=== PATIENT | female | born 1940 | race Hispanic/Latino ===

== ENCOUNTER 2022-01-01 08:25 | Emergency (ER) | payer OTHER, MEDICARE ==
[~2022-01-01] VITALS: Ht 152.4 cm; Wt 95.3 kg
[2022-01-01] MEDS ORDERED: NA P133E4 RC (11:13)
[2022-01-01 12:02] VITALS: BP 147/66
== END 2022-01-01 12:04 | disposition home or self-care (01) ==
LOC: EDH 08:25
DX: K59.00 Constipation, unspecified (principal); R10.84 Generalized abdominal pain; R14.0 Abdominal distension (gaseous); I10 Essential (primary) hypertension; E11.9 Type 2 diabetes mellitus without complications; E78.00 Pure hypercholesterolemia, unspecified
CPT/HCPCS: 74018

== ENCOUNTER → 2025-01-04 | Outpatient (CLI) | payer OTHER, MEDICARE ==
[~2025-01-04] MED LIST: ASPI-1443 PO; BENZ200C53 PO; BRIM5DRO OP; CLOB15CR5 TP; EZET10TA48 PO; GABA300C PO; LACT10SO76 PO; LATA2.5D14 OD; LEVO750T68 PO; LISI10TA24 PO; METF-444 PO; MOLN200C PO; OMEP20CA12 PO
--- NOTE | 2025-01-04 12:51 | HMCIMG ---
UPPER GI TRACT, WO KUB REASON: DIAPHRAGMATIC HERNIA W/O OBSTRUCTION OR GANGRENE, DYSPHAGIA. COMPARISON: None TECHNIQUE: Biphasic upper GI series study was performed. FINDINGS: There is no obstruction to the antegrade passage of barium from mouth through jejunum. A normal esophageal stripping seen. There is moderate size hiatal hernia. There is gastroesophageal reflux into the level of the upper mid thoracic esophagus. There are tertiary esophageal contractions of the esophagus. Stomach is moderately distended with wall thickening related to gastritis. Duodenal bulb and duodenal sweep are unremarkable. No ulceration or mass lesion is seen. IMPRESSION: No obstruction. Hiatal hernia. Gastroesophageal reflux to the upper mid thoracic esophagus. Nonspecific gastric wall thickening.
== END | disposition home or self-care (01) ==
LOC: RAH 09:00
PROVIDERS: ATTEND Internal Medicine Gastroenterology
DX: K21.9 Gastro-esophageal reflux disease without esophagitis (principal); K44.9 Diaphragmatic hernia without obstruction or gangrene; R13.10 Dysphagia, unspecified
CPT/HCPCS: 74240

== ENCOUNTER 2025-02-17 08:02 | Observation (INO) | payer OTHER, MEDICARE ==
[2025-02-15 11:07] VITALS: BP 171/71; PULSE 60; RESP 18; TEMP 97.5
[2025-02-15 11:15] LABS: CREATININE 1.4 mg/dL (0.5-1.0); POTASSIUM 4.9 mmol/L (3.5-5.1)
[2025-02-15 11:19] LABS: BASOPHILS # (AUTO) 0.02 K/uL (0.00-0.20); BASOPHILS % (AUTO) 0.3 % (0.0-5.0); EOSINOPHILS # (AUTO) 0.06 K/uL (0.00-0.70); HEMATOCRIT 35.8 % (36-48); IMMATURE GRANULOCYTE ABSOLUTE 0.03 K/uL (0-1); LYMPHOCYTES # (AUTO) 1.1 K/uL (1.0-4.8); LYMPHOCYTES % (AUTO) 19.1 % (21.0-51.0); MEAN CORPUSCULAR HEMOGLOBIN 29.9 pg (27.0-33.0); MEAN CORPUSCULAR HGB CONC 32.4 g/dL (32.0-36.0); MEAN CORPUSCULAR VOLUME 92.3 fL (79-99); MONOCYTES # (AUTO) 0.4 K/uL (0.1-1.0); MONOCYTES % (AUTO) 7.1 % (3.0-13.0); NEUTROPHILS # (AUTO) 4.2 K/uL (1.8-7.7); PLATELET COUNT (AUTO) 249 K/uL (130-400); RED BLOOD CELL COUNT(AUTO) 3.88 MIL/uL (4.00-5.50); WHITE BLOOD COUNT (AUTO) 5.8 K/uL (4.8-10.8)
[2025-02-15 11:29] LABS: INR 1.03 (0.85-1.15); PROTHROMBIN TIME 10.9 SEC (9.6-11.6)
[2025-02-15 11:30] LABS: PARTIAL THROMBOPLASTIN TIME 25.5 SEC (26.3-35.5)
--- NOTE | 2025-02-15 12:27 | EKG ---
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
--- NOTE | 2025-02-16 11:52 | NUR ---
RE:EKG REPORTED EKG RESULTS TO DR MANN, NO NEW ORDERS RECEIVED. (PT HAS CARDIAC CLEARANCE IN CHART)
[~2025-02-17] VITALS: Ht 152.4 cm; Wt 93.9 kg
[2025-02-17] VITALS (22 sets, daily range): BP systolic 136–166; BP diastolic 51–80; PULSE 20–67; RESP 17–41; TEMP 96.1–98; O2SAT 98
[~2025-02-17 08:02] MED LIST changes: -BENZ200C53 PO; -BRIM5DRO OP; +BRIM5DRO OS; -CLOB15CR5 TP; -LACT10SO76 PO; -LATA2.5D14 OD; +LATA2.5D14 OU; -LEVO750T68 PO; -MOLN200C PO; -OMEP20CA12 PO; +OMEP20TA20 PO
[2025-02-17] MEDS: 0.9%NACL 1000ML 1,000 ML IV ONE (08:44)
[2025-02-17] MEDS: ceFAZolin SODIUM 2 GM VIAL ONE (08:44)
[2025-02-17] MEDS ORDERED: ketaMINE 50MG/ML SYRINGE 50 MG/ML DISP.SYRIN ONE (10:31)
[2025-02-17] MEDS ORDERED: rocuRONium bROMide 10MG/1ML 5ML VL ONE ×2 (11:06→12:18)
[2025-02-17] MEDS ORDERED: proPOFol 10 MG/ML 20ML VIAL IV ONE (11:06)
[2025-02-17] MEDS ORDERED: FENTanyl CITRate PF 50 MCG/1 ML 2ML VIAL ONE (11:06)
[2025-02-17] MEDS ORDERED: LIDOCAINE PF 100MG/5ML (2%) SYRINGE 5ML ONE (11:06)
[2025-02-17] MEDS: INDOCYANINE GREEN 25 MG VIAL IJ ONE (11:10)
[2025-02-17] MEDS ORDERED: dexaMETHasone SOD PHOSPHATE 10MG/ML 1ML VIAL ONE (11:33)
[2025-02-17] MEDS ORDERED: ondanSETRON 4MG INJ ONE (11:33)
[2025-02-17] MEDS ORDERED: GLYCOPYRROLATE 0.2 MG/ML 5 ML VIAL ONE (11:39)
[2025-02-17] MEDS ORDERED: NEOSTIGMINE METHYLSULFATE 1MG/ML IV ONE (11:39)
[2025-02-17] MEDS ORDERED: phenylEPHRINE HCL 10 MG/ML 1ML VIAL IV ONE (11:44)
[2025-02-17] MEDS: BUPIvacaine/PF 0.5% 30ML VIAL ONE (11:52)
--- NOTE | 2025-02-17 13:35 | OP ---
Operative Note: DATE OF PROCEDURE: 02/17/25 SURGEON: PADDY MAURICIO MD HEAD HOST/HOSTESS: Lexx Mauricio MD PA-C ANESTHESIA: General and local ANESTHESIOLOGIST/COMMUNITY RELATIONS ASSISTANT: [facility] anesthesia team PREOPERATIVE DIAGNOSIS: Symptomatic cholelithiasis, Large hiatal hernia with incarcerated proximal stomach, GERD POSTOPERATIVE DIAGNOSIS: As above. Large paraesophageal hiatal hernia. Serosal gastric mass in the area of the junction of the fundus and body. SYNOPSIS: Repair of paraesophageal hiatal hernia with a mesh reinforcement, anterior fundoplication, cholecystectomy with intraoperative cholangiogram, exc isional biopsy of serosal gastric mass completed without complication. PROCEDURE: 1. Robotic assisted paraesophageal hiatal hernia repair with mesh reinforcement 2. Anterior fundoplication 3. Cholecystectomy with intraoperative cholangiogram 4. Excision of serosal gastric mass, 1.5x2cm 5. EGD ESTIMATED BLOOD LOSS: Minimal, less than 30 cc INDICATIONS: As above DESCRIPTION OF PROCEDURE: After standard precautions and preparations were undertaken a Veress needle and optical trocar were used to enter the abdominal cavity. All other instruments were placed under direct vision. The robotic system was docked in the standard fashion. We began our dissection by opening pars flaccida and identifying the right abigail of the diaphragm. There we were able to enter into a point in the mediastinum after incising through the paraesophageal hiatal hernia sac the plane was nearly avascular and we are able to circumferentially dissect to mobilize the distal esophagus and reduce the incarcerated stomach back into the peritoneal cavity. The end of our dissection the GE junction as verified by EGD was resting below the hiatus without any tension. Hiatal hernia repair was undertaken by suturing the right and left crura back in reapproximation. The defect was exceptionally large greater than 10 cm in widest diameter. After crura repair was completed we utilized a Bard two sided slowly absorbable mesh product cut in a horseshoe fashion placed as an overlay. We sutured in place to prevent mesh migration and maximize tissue contact with the mesh. This was unnecessary to reinforced the closure of such a large defect as well as due to the poor tissue quality. We then performed a fundoplication during the fundoplication however we encountered a serosal mass with the anterior surface of the stomach. The seromuscular mass was removed with the help of monopolar scissors. It was sent for pathologic inspection. The defect left behind by the mass removal was closed with interrupted sutures but did not appear to be full-thickness. We then turned our attention to the cholecystectomy portion of the case. Gallbladder was retracted cephalad and the infundibulum was dissected until we achieved a critical view of safety. With a single duct and single arterial structure entering the infundibulum we utilized a clip marine engineering consultant to clip and then eventually divide both structures. Monopolar cautery was used to remove attachments between the gallbladder and gallbladder fossa. The specimen was removed in an Endo-Catch bag. At the end of the case all instrument counts were verified as correct including needles and sponges. The patient tolerated the procedure well and was prepared for extubation and transferred to PACU in stable condition. PADDY MAURICIO MD Feb 17, 2025 13:35
[2025-02-17] MEDS ORDERED: morPHINE 4 MG SYG IVP PRN (14:00)
[2025-02-17] MEDS ORDERED: PROCHLORPERAZINE 10MG/2ML INJ IV PRN (14:00)
[2025-02-17] MEDS ORDERED: ENOXAPARIN SODIUM 30 MG/0.3 ML SQ SCH (14:00)
[2025-02-17] MEDS ORDERED: ondanSETRON 4MG INJ IVP PRN (14:00)
[2025-02-17] MEDS: FENTanyl CITRate PF 50 MCG/1 ML 2ML VIAL ONE (14:02)
[2025-02-17] MEDS: metRONIDazole 500MG/100ML BAG 200 ML ONE (14:49)
[2025-02-17] MEDS: FAMOTIDINE 20MG VIAL IV ONE (14:49)
[2025-02-17] MEDS: acetaMINOPHEN 100 ML ONE (14:49)
[2025-02-17] MEDS: ENOXAPARIN SODIUM 30 MG/0.3 ML SQ SCH (15:19)
[2025-02-17] MEDS: D5LR-20 MEQ KCL 1000 ML 1,000 ML IV SCH (15:20)
--- NOTE | 2025-02-17 16:29 | PN ---
GENERAL SURGERY PROGRESS NOTE Date/Time Patient Seen: [ 02/17/2025 11:30 a.m.] Problem List: [ ] Interval History: [ Postop day 0. Pain tolerable with p.r.n. medication.] Current Medications Medications (Trade) Dose Ordered Sig/Pernell Route Start Time Stop Time Status Last Admin Dose Admin Enoxaparin Sodium (Lovenox) 30 mg Q12H SQ 02/17/25 14:00 02/17/25 13:55 DC Enoxaparin Sodium (Lovenox) 30 mg Q24H SQ 02/17/25 14:00 03/19/25 13:59 02/17/25 15:19 30 MG Home Med (Home Medication) Brimonidine Tartrate/ Grupo... BID OS 02/17/25 21:00 03/19/25 20:59 Latanoprost (Xalatan) 1 DROP OU HS HS OU 02/17/25 21:00 03/19/25 20:59 Lisinopril (Prinivil 10mg) 10 mg DAILY PO 02/18/25 09:00 03/20/25 08:59 Pantoprazole Sodium (PROTonix 40MG TAB) 40 mg DAILY PO 02/18/25 09:00 03/20/25 08:59 Potassium Cl/ Dextrose/Lact Ringer's 1,000 ml @ 150 mls/hr Q6H40M IV 02/17/25 14:00 03/19/25 13:59 02/17/25 15:20 150 MLS/HR Physical Examination: ABD: [Incisions clean, dry and intact, Dermabond in place Vital Signs (last 8hr) Date Time Temp Pulse Resp B/P (MAP) Pulse Ox O2 Delivery O2 Flow Rate FiO2 02/17/25 14:30 97.9 61 20 151/56 96 Nasal Cannula 2.0 24 02/17/25 14:25 60 20 148/58 96 Nasal Cannula 2.0 24 02/17/25 14:20 59 17 156/58 97 Nasal Cannula 2.0 24 02/17/25 14:15 62 17 159/57 98 Nasal Cannula 2.0 24 02/17/25 14:10 61 18 161/62 100 Nonrebreathing Mask 10.0 100 02/17/25 14:05 60 18 157/59 100 Nonrebreathing Mask 10.0 100 02/17/25 14:00 65 18 150/56 100 Nonrebreathing Mask 10.0 100 02/17/25 13:55 67 20 159/63 100 Nonrebreathing Mask 10.0 100 02/17/25 13:50 67 20 164/68 100 Nonrebreathing Mask 10.0 100 02/17/25 13:45 97.9 65 20 162/67 100 Nonrebreathing Mask 10.0 100 Laboratory: [ ] Chemistry Labs: Test 02/17/25 13:56 Range/Units Whole Blood Glucose 103 70-110 MG/DL Diagnostics / Radiology: [Copy/Paste Echos/Imaging Report here] Impression and Plan: [Plan is for discharge home in the next day or2 as long as patient tolerating p.o., ambulatory and pain under control. Discussed with patient and family. They understand and agree.] STEPHANY MAURICIO Feb 17, 2025 16:29
[2025-02-17] MEDS: ketOROlac 15MG/ML VIAL (15MG/ML) IV PRN (16:42)
[2025-02-17] MEDS: Brimonidine Tartrate/Timolol (Combigan Eye Drops) 1 DROP OS SCH (20:45)
[2025-02-17] MEDS: HYDROcod/acetaMINOPHEN 7.5/325 MG 15 ML UDCUP PO PRN (22:07)
[2025-02-17] MEDS: LATANOPROST 2.5 ML DROPS OU SCH (22:12)
[2025-02-18] VITALS: BP 129/59; PULSE 59; RESP 20; TEMP 97.5
[2025-02-18 04:00] VITALS: BP 129/55; PULSE 52; RESP 20; TEMP 98
[2025-02-18 09:37] VITALS: BP 112/51; PULSE 63; RESP 20; TEMP 97.7
[2025-02-18 10:12] VITALS: O2SAT 95
[2025-02-18] MEDS: PANTOPrazole 40 MG TAB DR PO SCH (10:12)
[2025-02-18] MEDS: LISINOPRIL 10 MG TABLET PO SCH (10:13)
[2025-02-18 12:00] VITALS: BP 142/63; PULSE 52; RESP 17; TEMP 98.4
--- NOTE | 2025-02-18 13:38 | NUR ---
DCP: HOME Pt lives at home with her Jarret Medrano and daughter Kiley Joe [phone]. Pt requires assistance with her ADLS, home management and meal prep. Pt has provider 8-12 daily from [facility], uses her walker with seat to ambulate and has no HH or HD at this time. PCP is Neema Bowser. Deny need for SNF and want to return home at dc Addendum: 02/18/25 at 1340 by ELEONORA KAUFMAN SS Amended: Links added.
--- NOTE | 2025-02-18 15:46 | DS ---
Discharge Summary HOSPITAL COURSE SUMMARY: This is an 84-year-old female with past medical history of symptomatic cholelithiasis, large hiatal hernia with incarcerated proximal stomach and GERD who underwent repair of a paraesophageal hiatal hernia with mesh reinforcement, anterior fundoplication, cholecystectomy and excisional biopsy of serosal gastric mass. Patient doing well and in no acute distress. She is tolerating diet. Abdominal incisions clean, dry and intact. She meets discharge criteria. GROUNDS KEEPER(S): None PROCEDURES: 1. Robotic assisted paraesophageal hiatal hernia repair with mesh reinforcement 2. Anterior fundoplication 3. Cholecystectomy with intraoperative cholangiogram 4. Excision of serosal gastric mass, 1.5x2cm 5. EGD PROBLEM(S): Symptomatic cholelithiasis, Large hiatal hernia with incarcerated proximal stomach, GERD POSTOPERATIVE DIAGNOSIS: As above. Large paraesophageal hiatal hernia. Serosal gastric mass in the area of the junction of the fundus and body. DISCHARGE INSTRUCTIONS: Follow post op diet Home Meds Reported Medications Gabapentin (Neurontin) 300 Mg Capsule, 300 MG PO BID, CAP 02/15/25 Brimonidine Tartrate/Timolol (Combigan Eye Drops) 0.2 %-0.5 % Drops, 1 DROP OS BID, DROP 02/15/25 Metformin HCl (Metformin HCl) 500 Mg Tablet, 500 MG PO BID, TAB 02/15/25 Aspirin (Aspirin EC) 81 Mg Tablet.dr, 81 MG PO HS, TAB 02/15/25 Lisinopril (Lisinopril) 10 Mg Tablet, 10 MG PO DAILY, TAB 02/15/25 Omeprazole (Omeprazole) 20 Mg Tablet.dr, 20 MG PO DAILY, TAB 02/15/25 Latanoprost (Latanoprost) 0.005 % Drops, 1 DROP OU HS, ML 0 Refills 10/16/24 Ezetimibe (Ezetimibe) 10 Mg Tablet, 10 MG PO HS, TAB 10/16/24 Time spent arranging discharge: 1-30 minutes ALEKSANDRA CAMP WRAPPER SELECTOR Feb 18, 2025 15:46
[2025-02-18 16:00] VITALS: BP 134/61; PULSE 58; RESP 17; TEMP 97.6
--- NOTE | 2025-02-18 16:52 | NUR ---
DISCHARGE PERIPHERAL IV DISCONTINUED DISCHARGE EDUCATION AND INSTRUCTIONS PROVIDED TO PATIENT AND FAMILY PATIENT AND FAMILY AWARE OF WEIGHT LIFTING RESTRICTION PATIENT AND FAMILY AWARE OF APPOINTMENT WITH [facility] PATIENT AND FAMILY AWARE TO CONTINUE HOME MEDICATIONS ALL QUESTIONS ANSWERED.
== END 2025-02-18 17:00 | disposition home or self-care (01) ==
LOC: DAH 08:02 → INTOOBSV 08:03 → DAH 08:03 → DAHIP 08:03 → 4DH 14:40 → 4CH 23:15
PROVIDERS: ADMIT Surgery; ATTEND Surgery
DX: K80.10 Calculus of gallbladder with chronic cholecystitis without obstruction (principal); K44.0 Diaphragmatic hernia with obstruction, without gangrene; K31.9 Disease of stomach and duodenum, unspecified; K21.9 Gastro-esophageal reflux disease without esophagitis; I10 Essential (primary) hypertension; E78.5 Hyperlipidemia, unspecified; M19.90 Unspecified osteoarthritis, unspecified site; E11.9 Type 2 diabetes mellitus without complications; Z79.899 Other long term (current) drug therapy; Z86.2 Personal history of diseases of the blood and blood-forming organs and certain disorders involving the immune mechanism; Z90.710 Acquired absence of both cervix and uterus
CPT/HCPCS: 80048; 85025; 85610; 85730; 86850; 86900; 86901; 36415; 93005; 43282; 96374; 96372 ×2; 47563; 82948 ×2; 88304; 88305; 88312; 88342; 74300; 88341; 97161; 97116; 97530 ×2; J1885; A4663; A4215 ×2; J3490 ×6; J3010 ×2; J1100; J7030; J2003; J1650 ×2; J2704; J2405; J2710; J0665; J2371; J3480 ×2; J0690; A4649; C1781; A4930; A4335; A4222; A4221; A4216; G0378; A4520; A4223 ×2; A4600; 43235